=== PATIENT | female | born 1960 | race African-American/Black ===

== ENCOUNTER 2016-07-08 11:51 | Observation (INO) | payer OTHER ==
[2016-07-08] MEDS ORDERED: NITROGLYCERIN OINT 1 INCH/GM PACKET TOPICAL STA (12:22)
--- NOTE | 2016-07-08 12:25 | ED ---
General Adult HPI - General Chief complaint: Chest Pain Stated complaint: Chest pain Time Seen by Provider: 07/08/16 12:20 Source: patient, EMS, RN notes reviewed Mode of arrival: EMS Limitations: no limitations - History of Present Illness Initial comments: Patient is a pleasant 55-year-old female presenting to the emergency department complaining of chest discomfort. Onset of symptoms was a few days ago. Discomfort is steady. Discomfort is worse with exertion. Discomfort feels like pressure. No dyspnea. Patient does have cough and nasal congestion. Discomfort also increases with deep breath. No diaphoresis. No fevers. Patient does have a history of similar symptoms previously associated with pneumonia. Patient presents from [place] where she is there for drug rehab. - Related Data Home Medications Medication Instructions Recorded Confirmed QUEtiapine FUMARATE [SEROquel] 200 mg PO BID 07/08/16 07/08/16 Allergies Allergy/AdvReac Type Severity Reaction Status Date / Time NSAIDS (Non-Steroidal Allergy Unknown Verified 07/08/16 12:41 Anti-Inflamma propoxyphene [From Darvon] Allergy Unknown Verified 07/08/16 12:41 Review of Systems ROS Statement: Those systems with pertinent positive or pertinent negative responses have been documented in the HPI. ROS Other: All systems not noted in ROS Statement are negative. Constitutional: Denies: fever Eyes: Denies: eye pain ENT: Denies: ear pain Respiratory: Reports: cough Cardiovascular: Reports: chest pain Endocrine: Denies: fatigue Gastrointestinal: Denies: abdominal pain Genitourinary: Denies: dysuria Musculoskeletal: Denies: back pain Skin: Denies: rash Neurological: Denies: weakness Past Medical History Past Medical History: No Reported History History of Any Multi-Drug Resistant Organisms: MRSA Date of last positivie culture/infection: 2013 MDRO Source:: Arm Abscess Past Surgical History: Appendectomy, Cholecystectomy, Tonsillectomy Additional Past Surgical History / Comment(s): 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 Past Psychological History: Bipolar, Schizophrenia Smoking Status: Current every day smoker Past Alcohol Use History: None Reported Past Drug Use History: Heroin General Exam Limitations: no limitations General appearance: alert, in no apparent distress Head exam: Present: atraumatic Eye exam: Present: normal appearance, PERRL ENT exam: Present: normal oropharynx Neck exam: Present: normal inspection Respiratory exam: Present: normal lung sounds bilaterally Cardiovascular Exam: Present: regular rate, normal rhythm Expanded Peripheral pulses: 2+: Radial (R), Radial (L), Dorsalis Pedis (R), Dorsalis Pedis (L) GI/Abdominal exam: Present: soft. Absent: tenderness Extremities exam: Present: normal inspection. Absent: pedal edema, calf tenderness Neurological exam: Present: alert Psychiatric exam: Present: normal affect, normal mood Skin exam: Absent: rash Course Vital Signs 07/08/16 11:56 Temperature 98.4 F Pulse Rate 119 H Respiratory 16 Rate Blood Pressure 131/87 O2 Sat by Pulse 97 Oximetry EKG Findings - EKG Comments: EKG Findings:: Normal sinus rhythm and 98. Normal intervals. Normal axis. Voltage criteria for LVH. No acute ST elevation. Medical Decision Making - Medical Decision Making Patient resting comfortably in bed. Patient updated on results and plan. Patient also specifically updated on need for further evaluation regarding large thyroid. - Lab Data Result diagrams: 07/08/16 11:56 07/08/16 11:56 Lab Results 07/08/16 07/08/16 07/08/16 Range/Units 11:56 11:56 11:56 WBC 5.4 (3.8-10.6) k/uL RBC 5.27 (3.80-5.40) m/uL Hgb 14.1 (11.4-16.0) gm/dL Hct 42.9 (34.0-46.0) % MCV 81.5 (80.0-100.0) fL MCH 26.7 (25.0-35.0) pg MCHC 32.7 (31.0-37.0) g/dL RDW 15.6 H (11.5-15.5) % Plt Count 291 (150-450) k/uL Neutrophils % 56 % Lymphocytes % 32 % Monocytes % 7 % Eosinophils % 1 % Basophils % 1 % Neutrophils # 3.0 (1.3-7.7) k/uL Lymphocytes # 1.7 (1.0-4.8) k/uL Monocytes # 0.4 (0-1.0) k/uL Eosinophils # 0.1 (0-0.7) k/uL Basophils # 0.0 (0-0.2) k/uL PT (9.0-12.0) sec INR (<1.1) APTT (22.0-30.0) sec D-Dimer (<0.60) mg/L FEU Sodium 140 (137-145) mmol/L Potassium 5.2 H (3.5-5.1) mmol/L Chloride 102 (98-107) mmol/L Carbon Dioxide 23 (22-30) mmol/L Anion Gap 15 mmol/L BUN 14 (7-17) mg/dL Creatinine 0.60 (0.52-1.04) mg/dL Est GFR (MDRD) Af Amer >60 (>60 ml/min/1.73 sqM) Est GFR (MDRD) Non-Af >60 (>60 ml/min/1.73 sqM) Glucose 125 H (74-99) mg/dL Calcium 9.6 (8.4-10.2) mg/dL Magnesium 2.0 (1.6-2.3) mg/dL Total Bilirubin 0.9 (0.2-1.3) mg/dL AST 31 (14-36) U/L ALT 27 (9-52) U/L Alkaline Phosphatase 114 (38-126) U/L Total Creatine Kinase 65 (30-135) U/L CK-MB (CK-2) 0.4 (0.0-2.4) ng/mL CK-MB (CK-2) Rel Index 0.6 Troponin I <0.012 (0.000-0.034) ng/mL Total Protein 8.8 H (6.3-8.2) g/dL Albumin 4.4 (3.5-5.0) g/dL 07/08/16 Range/Units 11:56 WBC (3.8-10.6) k/uL RBC (3.80-5.40) m/uL Hgb (11.4-16.0) gm/dL Hct (34.0-46.0) % MCV (80.0-100.0) fL MCH (25.0-35.0) pg MCHC (31.0-37.0) g/dL RDW (11.5-15.5) % Plt Count (150-450) k/uL Neutrophils % % Lymphocytes % % Monocytes % % Eosinophils % % Basophils % % Neutrophils # (1.3-7.7) k/uL Lymphocytes # (1.0-4.8) k/uL Monocytes # (0-1.0) k/uL Eosinophils # (0-0.7) k/uL Basophils # (0-0.2) k/uL PT 10.2 (9.0-12.0) sec INR 1.0 (<1.1) APTT 25.5 (22.0-30.0) sec D-Dimer 0.63 H (<0.60) mg/L FEU Sodium (137-145) mmol/L Potassium (3.5-5.1) mmol/L Chloride (98-107) mmol/L Carbon Dioxide (22-30) mmol/L Anion Gap mmol/L BUN (7-17) mg/dL Creatinine (0.52-1.04) mg/dL Est GFR (MDRD) Af Amer (>60 ml/min/1.73 sqM) Est GFR (MDRD) Non-Af (>60 ml/min/1.73 sqM) Glucose (74-99) mg/dL Calcium (8.4-10.2) mg/dL Magnesium (1.6-2.3) mg/dL Total Bilirubin (0.2-1.3) mg/dL AST (14-36) U/L ALT (9-52) U/L Alkaline Phosphatase (38-126) U/L Total Creatine Kinase (30-135) U/L CK-MB (CK-2) (0.0-2.4) ng/mL CK-MB (CK-2) Rel Index Troponin I (0.000-0.034) ng/mL Total Protein (6.3-8.2) g/dL Albumin (3.5-5.0) g/dL - Radiology Data Radiology results: report reviewed (No pulmonary embolism on computed tomography scan of the chest. There is enlarged thyroid.) Disposition Clinical Impression: Chest pain Disposition: ADMITTED IP TO THIS HOSP
[2016-07-08 12:49] LABS: Basophils % (A) 1 %; CH 26.3; CHCM 32.4; Eosinophils # (A) 0.1 k/uL (0-0.7); Eosinophils % (A) 1 %; HCT 42.9 % (34.0-46.0); HDW 2.56; HGB 14.1 gm/dL (11.4-16.0); Luc # (Auto) 0.19; Luc % (Auto) 4; Lymphocytes # (A) 1.7 k/uL (1.0-4.8); Lymphocytes % (A) 32 %; MCH 26.7 pg (25.0-35.0); MCHC 32.7 g/dL (31.0-37.0); MCV 81.5 fL (80.0-100.0); Mean Platelet Volume 9.2; Monocytes # (A) 0.4 k/uL (0-1.0); Monocytes % (A) 7 %; Neutrophils % (A) 56 %; RBC 5.27 m/uL (3.80-5.40); RDW 15.6 % (11.5-15.5); WBC 5.4 k/uL (3.8-10.6); WBC (Perox) 5.18
[2016-07-08 13:04] LABS: Partial Thromboplastin Time 25.5 sec (22.0-30.0); Prothrombin Time 10.2 sec (9.0-12.0)
[2016-07-08 13:21] LABS: Creatine Kinase 65 U/L (30-135)
[2016-07-08] MEDS ORDERED: RX INFO: IV CONTRAST WAS GIVEN 1 EACH MISC MISCELLANE PRN (13:21)
[2016-07-08 13:28] LABS: ALT 27 U/L (9-52); AST 31 U/L (14-36); Alkaline Phosphatase 114 U/L (38-126); Anion Gap 15 mmol/L; Blood Urea Nitrogen 14 mg/dL (7-17); Calcium 9.6 mg/dL (8.4-10.2); Carbon Dioxide 23 mmol/L (22-30); Chloride 102 mmol/L (98-107); Glucose 125 mg/dL (74-99); Non-African American GFR(MDRD) >60 (>60 ml/min/1.73 sqM); Sodium 140 mmol/L (137-145); Total Bilirubin 0.9 mg/dL (0.2-1.3); Total Protein 8.8 g/dL (6.3-8.2)
[2016-07-08 13:30] LABS: Potassium 5.2 mmol/L (3.5-5.1)
--- NOTE | 2016-07-08 13:32 | XR ---
EXAMINATION TYPE: XR chest 2V DATE OF EXAM: 07/08/2016 1:22 PM COMPARISON: NONE HISTORY: Chest pain and shortness of breath TECHNIQUE: Frontal and lateral views of the chest are obtained. FINDINGS: Surgical clips are present in the upper abdomen. There are overlying cardiac leads. No air space disease, pneumothorax, or pleural effusion. Cardiac mediastinal silhouette, pulmonary vasculari ty and sourav are within normal limits. IMPRESSION: No acute cardiopulmonary process.
[2016-07-08 13:34] LABS: Creatine Kinase MB 0.4 ng/mL (0.0-2.4); Troponin I <0.012 ng/mL (0.000-0.034)
--- NOTE | 2016-07-08 14:37 | CT ---
EXAMINATION TYPE: CT angio chest DATE OF EXAM: 07/08/2016 2:17 PM COMPARISON: Chest x-ray same date HISTORY: Pt states of chest pain and SOB. CT DLP: 162.6 mGycm Automated exposure control for dose reduction was used. CONTRAST: CTA scan of the thorax is performed with IV Contrast, patient injected with 75 mL of Omnipaque 350, p ulmonary embolism protocol. MIP images are created and reviewed. 3D reconstructed images are create d on an independent workstation and reviewed. FINDINGS: LUNGS: The lungs are grossly clear, there is no concerning parenchymal mass or nodule identified. T here is no pleural effusion or pneumothorax seen. The tracheobronchial tree is patent. AORTA: No additional significant abnormality is seen. MEDIASTINUM: There is satisfactory enhancement of the pulmonary artery and its branches, there is no CT evidence for pulmonary embolism. There are no greater than 1 cm hilar or mediastinal lymph nodes. No pericardial effusion is seen. OTHER: The thyroid gland appears prominently and is somewhat asymmetric greater in size on the right than on the left. IMPRESSION: SUSPECT THYROID ENLARGEMENT CORRELATE. PULMONARY EMBOLISM IS NOT EVIDENT.
[2016-07-08] MEDS ORDERED: QUEtiapine 100 MG TAB PO STA (14:54)
[2016-07-08] MEDS ORDERED: NITROGLYCERIN SL TABS 0.4 MG TAB SUBLINGUAL PRN (14:55)
[2016-07-08] MEDS: NITROGLYCERIN OINT 1 INCH/GM PACKET TOPICAL SCH (17:31)
[2016-07-08] MEDS: HEPARIN SODIUM,PORCINE 5,000 UNIT/ML 1 ML VIAL SQ SCH ×2 (17:34→23:41)
[2016-07-08 20:06] LABS: Creatine Kinase 71 U/L (30-135)
[2016-07-08] MEDS ORDERED: CHLORPHENIRAMINE MALEATE 4 MG PO PRN (20:17)
[2016-07-08] MEDS ORDERED: ALBUTEROL NEBULIZED 2.5 MG/3 ML INHALATION PRN (20:17)
[2016-07-08] MEDS ORDERED: cloNIDine HCL 0.1 MG TAB PO PRN (20:17)
[2016-07-08] MEDS ORDERED: MAGNESIUM OXIDE 400 MG TAB PO PRN (20:17)
[2016-07-08] MEDS ORDERED: CALCIUM CARBONATE 500 MG CHEWABLE PO PRN (20:17)
[2016-07-08] MEDS ORDERED: busPIRone HCl 10 MG TAB PO PRN (20:17)
[2016-07-08] MEDS ORDERED: ONDANSETRON ODT 8 MG TAB.RAPDIS PO PRN (20:17)
[2016-07-08 20:20] LABS: Creatine Kinase MB 0.5 ng/mL (0.0-2.4); Troponin I <0.012 ng/mL (0.000-0.034)
[2016-07-08] MEDS ORDERED: diphenhydrAMINE 25 MG CAP PO PRN (20:44)
[2016-07-08] MEDS ORDERED: QUEtiapine 200 MG TAB PO SCH (21:00)
[2016-07-08] MEDS: TEMAZEPAM 15 MG CAP PO PRN ×2 (21:50→21:51)
[2016-07-08] MEDS: FAMOTIDINE 20 MG TAB PO SCH (21:52)
[2016-07-08] MEDS: LORazepam 2 MG/ML SYRINGE IV PRN (21:54)
[2016-07-08] MEDS: ONDANSETRON 4 MG/2 ML VIAL IM PRN (23:37)
[2016-07-09 00:34] LABS: Creatine Kinase 76 U/L (30-135)
[2016-07-09 00:47] LABS: Creatine Kinase MB 0.4 ng/mL (0.0-2.4); Troponin I <0.012 ng/mL (0.000-0.034)
[2016-07-09] MEDS: NITROGLYCERIN OINT 1 INCH/GM PACKET TOPICAL SCH ×3 (02:55→12:19)
[2016-07-09] MEDS: LORazepam 2 MG/ML SYRINGE IV PRN ×2 (03:00→09:19)
[2016-07-09] MEDS: ONDANSETRON 4 MG/2 ML VIAL IM PRN (06:10)
[2016-07-09 08:21] VITALS: PULSE 115; RESP 16; TEMP 98
[2016-07-09 08:31] VITALS: BP 179/91
[2016-07-09] MEDS: ACETAMINOPHEN TAB 325 MG TAB PO PRN ×2 (08:39→14:07)
--- NOTE | 2016-07-09 08:59 | P.CRDCN ---
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 The patient describes atypical chest discomfort. She was experiencing nausea and vomiting for the whole night. Currently she seems to be hypertensive and tachycardic and she seems to be in a withdrawal from alcohol or so. The EKG showed sinus rhythm without any significant ST or T-wave abnormalities. The cardiac enzymes were checked and came in to be unremarkable. The patient is not aware of any prior cardiac history and never seen any event security officer in the past. She is on Norvasc. I'm going to DC the Norvasc and start the patient on metoprolol for heart rate control. We'll obtain an echocardiogram was Doppler. We'll follow-up with the patient. 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 Past Psychological History: Bipolar, Schizophrenia Smoking Status: Current every day smoker Past Alcohol Use History: None Reported Past Drug Use History: Heroin Medications and Allergies Home Medications Medication Instructions Recorded Confirmed Type Acetaminophen Tab [Tylenol Tab] 650 mg PO Q4H PRN 07/08/16 07/08/16 History Albuterol Inhaler [Ventolin Hfa 2 puff INHALATION RT-Q4H PRN 07/08/16 07/08/16 History Inhaler] Calcium 1,000 mg PO TID PRN 07/08/16 07/08/16 History Chlorpheniramine Maleate 4 mg PO Q4H PRN MDD 4 tablets 07/08/16 07/08/16 History [Chlor-Trimeton] Citalopram Hydrobromide [CeleXA] 20 mg PO DAILY 07/08/16 07/08/16 History Magnesium Gluconate [Magonate] 500 mg PO TID PRN 07/08/16 07/08/16 History Multivitamins, Thera [Multivitamin 1 tab PO DAILY 07/08/16 07/08/16 History (formulary)] Ondansetron HCl [Zofran] 8 mg PO Q6H PRN 07/08/16 07/08/16 History Ondansetron [Zofran] 4 mg IM Q6H PRN 07/08/16 07/08/16 History Ranitidine HCl [Zantac] 150 mg PO BID 07/08/16 07/08/16 History Thiamine [Vitamin B-1] 100 mg PO DAILY 07/08/16 07/08/16 History amLODIPine [Norvasc] 10 mg PO DAILY 07/08/16 07/08/16 History busPIRone HCl [Buspar] 10 mg PO TID PRN 07/08/16 07/08/16 History cloNIDine HCL [Catapres] 0.1 mg PO Q4H PRN 07/08/16 07/08/16 History Allergies Allergy/AdvReac Type Severity Reaction Status Date / Time NSAIDS (Non-Steroidal Allergy Unknown Verified 07/08/16 12:41 Anti-Inflamma propoxyphene [From Darvon] Allergy Unknown Verified 07/08/16 12:41 Physical Exam Vitals: Vital Signs Temp Pulse Pulse Resp BP BP Pulse Ox 07/09/16 08:30 179/91 07/09/16 08:00 98 F 115 H 16 87/52 97 07/09/16 04:00 98.1 F 111 H 18 162/93 97 07/09/16 00:00 112 H 18 07/08/16 22:56 105 H 18 163/85 96 07/08/16 20:00 99 18 07/08/16 19:40 98 F 120 H 18 105/63 96 07/08/16 16:00 98.7 F 87 16 123/70 100 07/08/16 15:10 98.5 F 80 20 142/83 100 Intake and Output 07/08/16 07/09/16 07/09/16 22:59 06:59 14:59 Intake Total 500 Balance 500 Intake: Amount of Fluid Infused ( 500 ml) Other: # Voids 1 Weight 74.1 kg - Constitutional General appearance: mild distress - Respiratory Respiratory: bilateral: CTA - Cardiovascular Rhythm: regular Results 07/08/16 11:56 07/08/16 11:56 Cardiac Enzymes 07/08/16 07/08/16 Range/Units 19:08 23:43 CK-MB (CK-2) 0.5 0.4 (0.0-2.4) ng/mL Troponin I <0.012 <0.012 (0.000-0.034) ng/mL Current Medications Generic Name Dose Route Start Last Admin Trade Name Freq PRN Reason Stop Dose Admin Acetaminophen 650 mg 07/08/16 20:17 07/09/16 08:39 Tylenol Tab PO 650 mg Q4H PRN Administration Pain Albuterol Sulfate 2.5 mg 07/08/16 20:17 Ventolin Nebulized INHALATION RT-Q4H PRN Shortness Of Breath Amlodipine Besylate 10 mg 07/09/16 09:00 Norvasc PO DAILY [facility] Aspirin 325 mg 07/09/16 09:00 Aspirin PO DAILY [facility] Buspirone HCl 10 mg 07/08/16 20:17 Buspar PO TID PRN Anxiety Calcium Carbonate/Glycine 1,000 mg 07/08/16 20:17 Tums PO TID PRN muscle cramps Citalopram Hydrobromide 20 mg 07/09/16 09:00 Celexa PO DAILY [facility] Clonidine 0.1 mg 07/08/16 20:17 Catapres PO Q4H PRN withdrawal sx Diphenhydramine HCl 25 mg 07/08/16 20:44 Benadryl PO Q4H PRN withdrawal sx Famotidine 20 mg 07/08/16 21:00 07/08/16 21:52 Pepcid PO Not Given BID [facility] Heparin Sodium (Porcine) 5,000 unit 07/08/16 16:00 07/08/16 23:41 Heparin SQ 5,000 unit Q8HR [facility] Administration Lorazepam 0.5 mg 07/08/16 20:18 07/09/16 03:00 Ativan IV 0.5 mg Q6HR PRN Administration Anxiety Magnesium Oxide 400 mg 07/08/16 20:17 Mag-Ox PO TID PRN muscle cramps Miscellaneous Information 1 each 07/08/16 13:21 Rx Info: Iv Contrast Was Given MISCELLANE 07/10/16 13:21 DAILY PRN Per Protocol Multivitamins 1 each 07/09/16 09:00 Theragran PO DAILY [facility] Nitroglycerin 1 inch 07/08/16 18:00 07/09/16 06:11 Nitro-Bid Oint TOPICAL Not Given Q6HR [facility] Nitroglycerin 0.4 mg 07/08/16 14:55 Nitrostat SUBLINGUAL Q5M PRN Chest Pain Ondansetron HCl 8 mg 07/08/16 20:17 Zofran Odt PO Q6H PRN Nausea And Vomiting Ondansetron HCl 4 mg 07/08/16 20:17 07/09/16 06:10 Zofran IM 4 mg Q6H PRN Administration Nausea And Vomiting Sodium Chloride 10 ml 07/08/16 21:00 07/08/16 23:45 Saline Flush IV Not Given BID BRENDA Temazepam 15 mg 07/08/16 20:18 07/08/16 21:51 Restoril PO 15 mg HS PRN Administration Insomnia Thiamine HCl 100 mg 07/09/16 09:00 Vitamin B-1 PO DAILY BRENDA Intake and Output 07/08/16 07/09/16 07/09/16 22:59 06:59 14:59 Intake Total 500 Balance 500 Intake: Amount of Fluid Infused ( 500 ml) Other: # Voids 1 Weight 74.1 kg Assessment and Plan Plan: assessment #1 atypical chest discomfort #2 sinus tachycardia #3 history of drug abuse Plan #1 DC Norvasc #2 start metoprolol #3 obtain an echocardiogram was Doppler next #4 follow-up with the patient
[2016-07-09] MEDS ORDERED: THIAMINE 100 MG TAB PO SCH (09:00)
[2016-07-09] MEDS ORDERED: CITALOPRAM HYDROBROMIDE 20 MG TAB PO SCH (09:00)
[2016-07-09] MEDS ORDERED: MULTIVITAMINS, THERA 1 EACH TAB PO SCH (09:00)
[2016-07-09] MEDS ORDERED: amLODIPine 10 MG TAB PO SCH (09:00)
[2016-07-09] MEDS ORDERED: ASPIRIN 325 MG TAB PO SCH (09:00)
[2016-07-09] MEDS ORDERED: METOPROLOL TARTRATE 25 MG TAB PO SCH (09:15)
[2016-07-09] MEDS: HEPARIN SODIUM,PORCINE 5,000 UNIT/ML 1 ML VIAL SQ SCH (09:56)
[2016-07-09] MEDS: FAMOTIDINE 20 MG TAB PO SCH (10:15)
[2016-07-09 12:22] LABS: Basophils % (A) 1 %; CH 25.8; CHCM 31.4; Eosinophils % (A) 0 %; HCT 45.7 % (34.0-46.0); HDW 2.41; HGB 14.3 gm/dL (11.4-16.0); Hypochromasia Slight; Luc # (Auto) 0.14; Luc % (Auto) 3; Lymphocytes # (A) 1.4 k/uL (1.0-4.8); Lymphocytes % (A) 35 %; MCH 25.8 pg (25.0-35.0); MCHC 31.3 g/dL (31.0-37.0); MCV 82.3 fL (80.0-100.0); Mean Platelet Volume 7.8; Monocytes # (A) 0.2 k/uL (0-1.0); Monocytes % (A) 4 %; Neutrophils # (A) 2.4 k/uL (1.3-7.7); Neutrophils % (A) 57 %; RBC 5.55 m/uL (3.80-5.40); RDW 15.1 % (11.5-15.5); WBC 4.2 k/uL (3.8-10.6); WBC (Perox) 4.35
[2016-07-09 12:27] LABS: Anion Gap 14 mmol/L; Blood Urea Nitrogen 14 mg/dL (7-17); Calcium 10.3 mg/dL (8.4-10.2); Carbon Dioxide 23 mmol/L (22-30); Chloride 103 mmol/L (98-107); Cholesterol 214 mg/dL (<200); Glucose 133 mg/dL (74-99); HDL Cholesterol 66 mg/dL (40-60); Non-African American GFR(MDRD) >60 (>60 ml/min/1.73 sqM); Potassium 4.6 mmol/L (3.5-5.1); Sodium 140 mmol/L (137-145); Triglycerides 196 mg/dL (<150)
--- NOTE | 2016-07-09 15:08 | HP ---
CHIEF COMPLAINT: Chest pain. HISTORY OF PRESENT ILLNESS: This 55-year-old woman with a past medical history of hypertension, history of MRSA, history of appendectomy, history of arm abscess, history of bipolar schizophrenia being followed by the primary physician in [facility] was recently in rehab in [place] for heroin dependence and the patient was admitted with chest discomfort to [facility]. The patient had complained of cough and sputum for the last 3 to 4 days. The pain is mostly left-sided and mid part. It is worse in extension, according to her, feels like a pressure there is no history of any palpitation. No history of any diaphoresis. No history of any radiation of pain as well. The patient came to [facility], admitted for further evaluation and treatment. Initial labs showed normal CBC. Potassium was 5.2, glucose 125. Total protein was 8.8. The patient also had a chest x-ray and showed no acute process. EKG showed sinus rhythm. A chest CT was also done, which showed suspected thyroid enlargement. Otherwise, no pulmonary embolism. PAST MEDICAL HISTORY: History of hypertension, history of MRSA, history cholecystectomy, history of appendectomy, bipolar schizophrenia. Medications prior to admission include: 2. BuSpar 10 mg p.o. daily. 3. Norvasc 10 mg daily. 5. Zantac 150 mg p.o. b.i.d. 6. Zofran 8 mg every 6 hours p.r.n. 7. Multivitamin 1 p.o. daily. 9. Celexa 20 mg daily. 10. Chlor-Trimeton 4 mg p.o. every 4 p.r.n. 11. Calcium 1000 mg p.o. daily. 12. Ventolin HFA 2 puffs q.4 p.r.n. 13. Tylenol 650 q.4 p.r.n. ALLERGIES: NSAIDS AND DARVON. FAMILY HISTORY: No history of heart disease or strokes in the family. SOCIAL HISTORY: History of smoking. History of IV heroin abuse. REVIEW OF SYSTEMS: ENT: No diminishing hearing. No diminished vision. CARDIOVASCULAR: As mentioned earlier. RESPIRATORY: As mentioned earlier. GI: No nausea. : No dysuria. NERVOUS: No numbness or weakness. ALLERGY/IMMUNOLOGY: No asthma or hay fever. MUSCULOSKELETAL: As mentioned earlier. HEMATOLOGY/ONCOLOGY: No history of anemia. ENDODRINE: No history of diabetes, hypothyroidism. CONSTITUTIONAL: As mentioned earlier. DERMATOLOGY: Negative. RHEUMATOLOGY: Negative. PSYCHIATRY: As mentioned earlier. PHYSICAL EXAM: Alert and oriented x3. Pulse 120, blood pressure 105/66, respirations 18, temperature 98 degrees, pulse ox 96% on room air. HEENT: Conjunctivae normal. Oral mucosa moist. NECK: No jugular venous distension. No carotid bruits. No lymph node enlargement. CARDIOVASCULAR: S1 and S2 muffled. No S3. No S4. RESPIRATORY: Breath sounds diminished at the bases. A few rhonchi. No crackles. ABDOMEN: Soft, nontender. No mass palpable. LEGS: No edema. No swelling. NERVOUS SYSTEM: Higher functions as mentioned. Moves all 4 limbs. No focal deficits. LYMPHATIC: No lymph nodes palpable in neck, axillae or groins. SKIN: No ulcer, rash or bleeding. Labs are CBC within normal limits. Potassium 5.8. D-dimer is 0.63. Glucose 125. 8.8. ASSESSMENT: 1. Chest pain, possible unstable angina. Rule out musculoskeletal chest pain. 2. Cough and upper respiratory infection, rule out influenza. 3. Increased D-dimer with no evidence of pulmonary embolus. 4. Mild hyperkalemia. 5. Increased random blood sugar. 6. History of nicotine dependence. 7. History of hypertension. 8. History of methicillin-resistant Staphylococcus aureus. 9. History of left arm abscess. 10. History of cholecystectomy. 11. History of bipolar schizophrenia. 12. FULL CODE. RECOMMENDATIONS AND DISCUSSION: In this 55-year-old woman who presented with multiple complex medical issues, we will monitor the patient closely. Continue the current medications, resume the home medications. Resume angina protocol and acute coronary syndrome protocol, rule out myocardial infarction. Closely follow with Cardiology. Guarded prognosis. Further recommendations to follow. MTDD
--- NOTE | 2016-07-10 23:00 | DS ---
DATE OF ADMISSION: 07/08/2016 DATE OF DISCHARGE: 07/09/2016 FINAL DIAGNOSES: 1. Chest pain, possibly musculoskeletal, myocardial infarction ruled out. 2. Cough and upper respiratory infection. Influenza ruled out. 3. Increased d-dimer, with no evidence of pulmonary embolism. 4. Mild hyperkalemia. 5. Increased random blood sugar. 6. History of nicotine dependence. 7. History of hypertension. 8. History of methicillin-resistant Staphylococcus aureus. 9. History of left arm abscess. 10. History of cholecystectomy. 11. History of bipolar schizophrenia. 12. History of IV heroin abuse. 13. Hyperlipidemia. DISCHARGE DISPOSITION: The patient will be discharged in a stable condition with guarded prognosis. Discharge cleared by cardiology. HISTORY OF PRESENT ILLNESS: This 55 -year-old woman with a past medical history of multiple medical problems from [facility] was in [facility] for IV heroin abuse. The patient came in with chest pain, multiple symptoms, treated symptomatically. Myocardial infarction ruled out. Evaluation by chest CT was negative. On exam, vitals are stable. CARDIOVASCULAR: S1, S2 muffled. ABDOMEN: Soft. Nervous system: noted. RESPIRATORY: Clear to auscultation. ABDOMEN: Soft. CENTRAL NERVOUS SYSTEM: No focal deficits. DISCHARGE ADVICE AND MEDICATIONS: 1. Diet is cardiac. 2. Activity limited until follow up. 3. Follow-up with the technical asst as recommended. 4. Follow-up with primary care physician in 2 to 3 days. 5. Calcium p.r.n. for muscle cramps. 6. Tylenol 650 q.4 p.r.n. 7. Albuterol HFA 2 puffs q.i.d. p.r.n. 8. Lipitor 10 mg q.h.s. 9. chlor pheneranibe 4 mg q.4 p.r.n. 10. Celexa 20 mg p.o. daily. 11. Magnesium Gluconate 500 mg p.o. t.i.d. 12. Lopressor 25 mg p.o. b.i.d. 13. Multivitamin 1 p.o. daily. 14. Zofran 4 mg p.r.n. 8 mg p.r.n. 15. Zantac 150 mg p.o. b.i.d. 16. Vitamin thiamine 100 mg p.o. daily. 17. Buspar 10 mg t.i.d. p.r.n. for anxiety. 18. Catapres 0.1 p.o. q4h for withdrawal symptoms. Once again, the patient will be discharged in a stable condition with guarded prognosis. MTDD
== END 2016-07-09 16:00 | disposition home or self-care (01) ==
LOC: EC 11:51 → 3OBS 14:55
PROVIDERS: ADMIT Internal Medicine; ATTEND Internal Medicine
DX: R07.89 Other chest pain (principal); J06.9 Acute upper respiratory infection, unspecified; E78.5 Hyperlipidemia, unspecified; E87.5 Hyperkalemia; I10 Essential (primary) hypertension; F31.9 Bipolar disorder, unspecified; F20.9 Schizophrenia, unspecified; R00.0 Tachycardia, unspecified; F17.200 Nicotine dependence, unspecified, uncomplicated; Z79.899 Other long term (current) drug therapy; Z88.8 Allergy status to other drugs, medicaments and biological substances
CPT/HCPCS: 36415; 93005; 85379; 80061; 80053; 80048; 82550; 82553; 83735; 84484; 85025 ×2; 85610; 85730; 87502; 71020; 71275; 99285; G0378 ×2; J2060 ×2; J1644; Q9967; J2405 ×2; 96372; 96376

== ENCOUNTER 2021-11-17 17:12 | Observation (INO) | payer OTHER ==
[2021-11-17] MEDS ORDERED: SODIUM CHLORIDE 0.9% 1,000 ML IV STA (17:44)
--- NOTE | 2021-11-17 17:49 | ED ---
Overdose HPI - General Chief Complaint: Overdose Stated Complaint: Overdose Time Seen by Provider: 11/17/21 17:15 Source: patient, EMS, RN notes reviewed Mode of arrival: EMS Limitations: altered mental status - History of Present Illness Initial Comments: 61-year-old female who presented to [facility] for treatment today when she was found be very lethargic. She took an unknown amount of gabapentin reportedly as well as possibly Ativan and methadone also fentanyl is reported. This unclear when she may have taken the medication she was transported here by EMS. Upon arrival she was noted to be arousable to pain and to verbal stimulation no evidence of any respiratory distress vital signs are stable. Unclear whether this was intentional or accidental. MD Complaint: other - Related Data Home Medications Medication Instructions Recorded Confirmed Acetaminophen Tab [Tylenol] 650 mg PO Q4H PRN 07/08/16 07/08/16 Albuterol Inhaler [Ventolin Hfa 2 puff INHALATION RT-Q4H PRN 07/08/16 07/08/16 Inhaler] Calcium 1,000 mg PO TID PRN 07/08/16 07/08/16 Chlorpheniramine Maleate 4 mg PO Q4H PRN MDD 4 tablets 07/08/16 07/08/16 [Chlor-Trimeton] Citalopram Hydrobromide [CeleXA] 20 mg PO DAILY 07/08/16 07/08/16 Magnesium Gluconate [Magonate] 500 mg PO TID PRN 07/08/16 07/08/16 Multivitamins, Thera [Multivitamin 1 tab PO DAILY 07/08/16 07/08/16 (formulary)] Ondansetron [Zofran] 4 mg IM Q6H PRN 07/08/16 07/08/16 Ranitidine HCl [Zantac] 150 mg PO BID 07/08/16 07/08/16 Thiamine [Vitamin B-1] 100 mg PO DAILY 07/08/16 07/08/16 busPIRone HCl [Buspar] 10 mg PO TID PRN 07/08/16 07/08/16 cloNIDine HCL [Catapres] 0.1 mg PO Q4H PRN 07/08/16 07/08/16 ondansetron HCL [Zofran] 8 mg PO Q6H PRN 07/08/16 07/08/16 Previous Rx's Medication Instructions Recorded Atorvastatin Calcium [Lipitor] 10 mg PO HS #30 tab 07/09/16 Metoprolol Tartrate [Lopressor] 25 mg PO BID #60 tab 07/09/16 Allergies Allergy/AdvReac Type Severity Reaction Status Date / Time NSAIDS (Non-Steroidal Allergy Unknown Verified 11/17/21 17:29 Anti-Inflamma propoxyphene [From Darvon] Allergy Unknown Verified 11/17/21 17:29 Review of Systems ROS Statement: Those systems with pertinent positive or pertinent negative responses have been documented in the HPI. ROS Other: All systems not noted in ROS Statement are negative. 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 Absent: scleral icterus, conjunctival injection, periorbital swelling ENT exam: Present: mucous membranes dry Neck exam: Present: normal inspection. Absent: tenderness, meningismus, lymphadenopathy Respiratory exam: Present: normal lung sounds bilaterally. Absent: respiratory distress, wheezes, rales, rhonchi, stridor Cardiovascular Exam: Present: regular rate, bradycardia GI/Abdominal exam: Present: soft, normal bowel sounds. 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 Absent: tenderness, pedal edema, joint swelling, calf tenderness Back exam: Present: normal inspection Neurological exam: Present: alert, altered, CN II-XII intact. Absent: motor sensory deficit Psychiatric exam: Present: flat affect Skin exam: Present: warm, dry, intact, normal color, other (As above). Absent: rash Course Vital Signs 11/17/21 11/17/21 11/17/21 17:26 18:09 18:56 Temperature 97.4 F L Pulse Rate 54 L 54 L Pulse Rate [ 54 L Truss Driver Helper ] Respiratory 15 16 Rate Blood Pressure 121/64 128/76 O2 Sat by Pulse 93 L 100 Oximetry 11/17/21 11/17/21 11/17/21 19:39 20:09 21:22 Temperature Pulse Rate 52 L 55 L 52 L Pulse Rate [ Truss Driver Helper ] Respiratory 16 16 16 Rate Blood Pressure 112/65 113/66 136/73 O2 Sat by Pulse 100 100 100 Oximetry Medical Decision Making - Medical Decision Making Patient was arousable to verbal and physical stimulus. Poison control was consulted and did recommend monitoring for 6-8 hours. I did discuss case with Dr. Noble patient will be admitted for inpatient monitoring. It is unknown when the medications were taken the patient has maintained stable vital signs throughout her stay. UA and drug screen is pending. - Lab Data Result diagrams: 11/17/21 17:51 11/17/21 17:51 Lab Results 11/17/21 11/17/21 11/17/21 Range/Units 17:51 17:51 17:51 WBC 5.9 (3.8-10.6) k/uL RBC 4.01 (3.80-5.40) m/uL Hgb 10.0 L (11.4-16.0) gm/dL Hct 31.8 L (34.0-46.0) % MCV 79.3 L (80.0-100.0) fL MCH 25.0 (25.0-35.0) pg MCHC 31.5 (31.0-37.0) g/dL RDW 15.3 (11.5-15.5) % Plt Count 259 (150-450) k/uL MPV 8.2 Neutrophils % 48 % Lymphocytes % 36 % Monocytes % 10 % Eosinophils % 3 % Basophils % 0 % Neutrophils # 2.8 (1.3-7.7) k/uL Lymphocytes # 2.1 (1.0-4.8) k/uL Monocytes # 0.6 (0-1.0) k/uL Eosinophils # 0.2 (0-0.7) k/uL Basophils # 0.0 (0-0.2) k/uL Hypochromasia Slight Sodium 139 (137-145) mmol/L Potassium 4.0 (3.5-5.1) mmol/L Chloride 104 (98-107) mmol/L Carbon Dioxide 28 (22-30) mmol/L Anion Gap 7 mmol/L BUN 11 (7-17) mg/dL Creatinine 0.57 (0.52-1.04) mg/dL Est GFR (CKD-EPI)AfAm >90 (>60 ml/min/1.73 sqM) Est GFR (CKD-EPI)NonAf >90 (>60 ml/min/1.73 sqM) Glucose 148 H (74-99) mg/dL Plasma Lactic Acid Nigel 1.4 (0.7-2.0) mmol/L Calcium 8.2 L (8.4-10.2) mg/dL Magnesium 2.1 (1.6-2.3) mg/dL Total Bilirubin 0.1 L (0.2-1.3) mg/dL AST 20 (14-36) U/L ALT 11 (4-34) U/L Alkaline Phosphatase 102 (38-126) U/L Ammonia <9 (<30) umol/L Troponin I (0.000-0.034) ng/mL Total Protein 6.7 (6.3-8.2) g/dL Albumin 3.3 L (3.5-5.0) g/dL Lipase 49 (23-300) U/L Salicylates <1.0 mg/dL Acetaminophen <10.0 ug/mL Serum Alcohol <10 mg/dL 11/17/21 Range/Units 17:51 WBC (3.8-10.6) k/uL RBC (3.80-5.40) m/uL Hgb (11.4-16.0) gm/dL Hct (34.0-46.0) % MCV (80.0-100.0) fL MCH (25.0-35.0) pg MCHC (31.0-37.0) g/dL RDW (11.5-15.5) % Plt Count (150-450) k/uL MPV Neutrophils % % Lymphocytes % % Monocytes % % Eosinophils % % Basophils % % Neutrophils # (1.3-7.7) k/uL Lymphocytes # (1.0-4.8) k/uL Monocytes # (0-1.0) k/uL Eosinophils # (0-0.7) k/uL Basophils # (0-0.2) k/uL Hypochromasia Sodium (137-145) mmol/L Potassium (3.5-5.1) mmol/L Chloride (98-107) mmol/L Carbon Dioxide (22-30) mmol/L Anion Gap mmol/L BUN (7-17) mg/dL Creatinine (0.52-1.04) mg/dL Est GFR (CKD-EPI)AfAm (>60 ml/min/1.73 sqM) Est GFR (CKD-EPI)NonAf (>60 ml/min/1.73 sqM) Glucose (74-99) mg/dL Plasma Lactic Acid Nigel (0.7-2.0) mmol/L Calcium (8.4-10.2) mg/dL Magnesium (1.6-2.3) mg/dL Total Bilirubin (0.2-1.3) mg/dL AST (14-36) U/L ALT (4-34) U/L Alkaline Phosphatase (38-126) U/L Ammonia (<30) umol/L Troponin I <0.012 (0.000-0.034) ng/mL Total Protein (6.3-8.2) g/dL Albumin (3.5-5.0) g/dL Lipase (23-300) U/L Salicylates mg/dL Acetaminophen ug/mL Serum Alcohol mg/dL - EKG Data -: EKG Interpreted by Me EKG shows normal: sinus rhythm EKG Comments: Sinus rhythm a 61. NE interval 173 QRS duration 87 QT/QTC 444/[address]-T wave changes - Radiology Data Radiology results: report reviewed, image reviewed (Reviewed as well as report no acute findings) Disposition Clinical Impression: Drug overdose Disposition: ADMITTED IP TO THIS [facility] Condition: Stable Referrals: None,Stated [Primary Care Provider] - 1-2 days Decision Date: 11/17/21 Decision Time: 21:00
[2021-11-17 18:00] LABS: Basophils % (A) 0 %; Eosinophils # (A) 0.2 k/uL (0-0.7); Eosinophils % (A) 3 %; HCT 31.8 % (34.0-46.0); Hypochromasia Slight; Lymphocytes # (A) 2.1 k/uL (1.0-4.8); Lymphocytes % (A) 36 %; MCHC 31.5 g/dL (31.0-37.0); MCV 79.3 fL (80.0-100.0); Mean Platelet Volume 8.2; Monocytes # (A) 0.6 k/uL (0-1.0); Monocytes % (A) 10 %; Neutrophils # (A) 2.8 k/uL (1.3-7.7); Neutrophils % (A) 48 %; Platelet Count 259 k/uL (150-450); RBC 4.01 m/uL (3.80-5.40); RDW 15.3 % (11.5-15.5); WBC 5.9 k/uL (3.8-10.6)
[2021-11-17 18:13] LABS: ALT 11 U/L (4-34); AST 20 U/L (14-36); Acetaminophen <10.0 ug/mL; African American GFR (CKD) >90 (>60 ml/min/1.73 sqM); Albumin 3.3 g/dL (3.5-5.0); Alcohol <10 mg/dL; Alkaline Phosphatase 102 U/L (38-126); Anion Gap 7 mmol/L; Blood Urea Nitrogen 11 mg/dL (7-17); Calcium 8.2 mg/dL (8.4-10.2); Carbon Dioxide 28 mmol/L (22-30); Chloride 104 mmol/L (98-107); Glucose 148 mg/dL (74-99); Lipase 49 U/L (23-300); Magnesium 2.1 mg/dL (1.6-2.3); Non-African American GFR(CKD) >90 (>60 ml/min/1.73 sqM); Salicylate <1.0 mg/dL; Sodium 139 mmol/L (137-145); Total Bilirubin 0.1 mg/dL (0.2-1.3); Total Protein 6.7 g/dL (6.3-8.2)
[2021-11-17 18:29] LABS: Lactic Acid, Venous 1.4 mmol/L (0.7-2.0)
--- NOTE | 2021-11-17 19:04 | XR ---
EXAMINATION: XR chest 1V portable DATE AND TIME: 11/17/2021 6:07 PM CLINICAL INDICATION: Overdose TECHNIQUE: AP upright portable COMPARISON: 07/08/2016 FINDINGS: There is evidence of small bibasilar infiltrates, greater on the left. Remainder of the lungs appear well-expanded and clear. The pleural spaces are negative. The cardiac silhouette is not enlarged. The remainder of the mediastinal silhouette is unremarkable. The skeletal structures and soft tissues are negative for acute findings. IMPRESSION: Mild bibasilar infiltrates, greater on the left.
[2021-11-17] MEDS ORDERED: NALOXONE 0.4 MG/ML 1 ML VIAL IV PRN (21:30)
[2021-11-17] MEDS ORDERED: ALBUTEROL NEBULIZED 2.5 MG/3 ML INHALATION PRN (21:31)
[2021-11-17] MEDS: SODIUM CHLORIDE 0.9% 1,000 ML IV SCH (22:00)
[2021-11-18 01:43] LABS: Appearance,Urine Clear (Clear); Bilirubin,Urine Negative (Negative); Blood,Urine Negative (Negative); Color,Urine Yellow; Glucose,Urine (UA) Negative (Negative); Ketones,Urine Negative (Negative); Leukocyte Esterase,Urine Negative (Negative); Nitrite,Urine Negative (Negative); Protein,Urine Negative (Negative); Specific Gravity,Urine 1.025 (1.001-1.035)
[2021-11-18 01:56] LABS: Amphetamine Screen,Urine Not Detected (NotDetected); Barbiturate Screen,Urine Not Detected (NotDetected); Benzodiazepines Screen,Urine Detected (NotDetected); Cocaine Screen,Urine Detected (NotDetected); Methadone Screen, Urine Detected (NotDetected); Opiate Screen,Urine Detected (NotDetected); Oxycodone Screen, Urine Not Detected (NotDetected); Phencyclidine Screen,Urine Not Detected (NotDetected); Tricyclic Antidepressant,Urine Not Detected (NotDetected); Urn Cannabinoid Scrn Not Detected (NotDetected)
[2021-11-18 05:01] VITALS: RESP 18
--- NOTE | 2021-11-18 06:14 | P.HPIM ---
History of Present Illness H&P Date: 11/17/21 Chief Complaint: overdose 61-year-old female with polysubstance abuse she is still under the influence and provides unreliable history she is arousable , but gives inconsistent answers and would drift back to sleep again. she admits to using multiple drugs, trying to get high, denies any suicidal ideation. admits to using cocaine, heroin and benzo. patient friend dropped her off at [facility], but due to her mentation and report of possible overdosing on gabapentine , opioids, and other unknown possible meds, she was sent to our facility for evaluation blood work overall unremarkable , urine drug screen positive for opioids, methadone, benzo and cocaine. UA unremarkable. patient reports back pain , which is chronic and asking for pain meds, otherwise , no meaningful history is obtainable . 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 - Past Family History Father Family Medical History: Unable to Obtain Mother Family Medical History: Unable to Obtain Medications and Allergies Home Medications Medication Instructions Recorded Confirmed Type Acetaminophen Tab [Tylenol] 650 mg PO Q4H PRN 07/08/16 07/08/16 History Albuterol Inhaler [Ventolin Hfa 2 puff INHALATION RT-Q4H PRN 07/08/16 07/08/16 History Inhaler] Calcium 1,000 mg PO TID PRN 07/08/16 07/08/16 History Chlorpheniramine Maleate 4 mg PO Q4H PRN MDD 4 tablets 07/08/16 07/08/16 History [Chlor-Trimeton] Citalopram Hydrobromide [CeleXA] 20 mg PO DAILY 07/08/16 07/08/16 History Magnesium Gluconate [Magonate] 500 mg PO TID PRN 07/08/16 07/08/16 History Multivitamins, Thera [Multivitamin 1 tab PO DAILY 07/08/16 07/08/16 History (formulary)] Ondansetron [Zofran] 4 mg IM Q6H PRN 07/08/16 07/08/16 History Ranitidine HCl [Zantac] 150 mg PO BID 07/08/16 07/08/16 History Thiamine [Vitamin B-1] 100 mg PO DAILY 07/08/16 07/08/16 History busPIRone HCl [Buspar] 10 mg PO TID PRN 07/08/16 07/08/16 History cloNIDine HCL [Catapres] 0.1 mg PO Q4H PRN 07/08/16 07/08/16 History ondansetron HCL [Zofran] 8 mg PO Q6H PRN 07/08/16 07/08/16 History Atorvastatin Calcium [Lipitor] 10 mg PO HS #30 tab 07/09/16 Rx Metoprolol Tartrate [Lopressor] 25 mg PO BID #60 tab 07/09/16 Rx Allergies Allergy/AdvReac Type Severity Reaction Status Date / Time NSAIDS (Non-Steroidal Allergy Unknown Verified 11/17/21 17:29 Anti-Inflamma propoxyphene [From Darvon] Allergy Unknown Verified 11/17/21 17:29 Physical Exam Vitals: Vital Signs Temp Pulse Pulse Resp BP BP Pulse Ox 11/17/21 22:58 16 11/17/21 22:45 97.8 F 60 16 146/74 96 11/17/21 21:22 52 L 16 136/73 100 11/17/21 20:09 55 L 16 113/66 100 11/17/21 19:39 52 L 16 112/65 100 11/17/21 18:56 54 L 11/17/21 18:09 54 L 16 128/76 100 11/17/21 17:26 97.4 F L 54 L 15 121/64 93 L Intake and Output 11/17/21 11/17/21 11/18/21 14:59 22:59 06:59 Other: Voiding Method Toilet Weight 90.718 kg Constitutional: No acute distress, somnolent easily arousable with verbal stimulation but drifts back to sleep quickly Eyes: Anicteric sclerae, moist conjunctiva, Pupils equal round reactive to light ENMT: NC/AT Oropharynx clear, no erythema, or exudates Neck: Supple, no masses, or JVD No carotid bruits No thyromegaly Lungs: Clear to auscultation Clear to percussion Normal respiratory effort, no accessory muscle use Cardiovascular: Heart regular in rate and rhythm, No murmurs, gallops, or rubs No peripheral edema Abdominal: Soft Nontender, no guarding, rebound or rigidity Abdomen moving with respiration Normoactive bowel sounds No hepatomegaly, No splenomegaly No palpable mass No abdominal wall hernia noted Skin: Thickening of skin of bilateral arms, otherwise Normal temperature, tone, texture, turgor Extremities: No digital cyanosis No clubbing Pedal pulses intact and symmetrical Radial pulses intact and symmetrical No calf tenderness Psychiatric: Somnolent easily arousable with verbal stimulation drifts back to sleep oriented to self only, she knows she is at a hospital but not sure which one Neuro unable to perform proper neuro exam however she is moving all 4 extremities and follows simple commands briefly Lymphatics: no palpable cervical or supraclavicular , or inguinal lymph nodes Results CBC & Chem 7: 11/17/21 17:51 11/17/21 17:51 Labs: Abnormal Lab Results - Last 24 Hours (Table) 11/17/21 11/17/21 11/17/21 Range/Units 17:51 17:51 17:51 Hgb 10.0 L (11.4-16.0) gm/dL Hct 31.8 L (34.0-46.0) % MCV 79.3 L (80.0-100.0) fL Glucose 148 H (74-99) mg/dL Calcium 8.2 L (8.4-10.2) mg/dL Total Bilirubin 0.1 L (0.2-1.3) mg/dL Albumin 3.3 L (3.5-5.0) g/dL Urine Opiates Screen Detected H (NotDetected) Urine Methadone Screen Detected H (NotDetected) U Benzodiazepines Scrn Detected H (NotDetected) Urine Cocaine Screen Detected H (NotDetected) Thrombosis Risk Factor Assmnt - Choose All That Apply Each Factor Represents 1 point: Age 41-60 years Thrombosis Risk Factor Assessment Total Risk Factor Score: 1 Thrombosis Risk Factor Assessment Level: Low Risk Assessment and Plan Assessment: Polysubstance abuse Overdose on multiple drugs not clear exactly possible gabapentin, opiates, methadone, benzos Salicylate, acetaminophen, and alcohol level all low within normal limits Urine drug screen was positive for benzo cocaine and opiates and methadone Continue with neuro checks Poison control was contacted recommended monitoring Cardiac monitoring IV fluid hydration normal saline Fall precautions Hold home medications until verified Psych eval Unclear past medical history at this point Blood work overall unremarkable Continue supportive care Full code DVT prophylaxis heparin subcu 3 times a day 61-year-old female with polysubstance abuse admitted for overdosing on multiple substances patient claims that this was for recreational purposes poison control was contacted and recommended monitoring until sobriety anticipated length of stay less than 2 midnights
[2021-11-18] MEDS ORDERED: HEPARIN SODIUM,PORCINE/PF 5,000 UNIT/0.5 ML SYRINGE SQ SCH (08:00)
[2021-11-18] MEDS ORDERED: METOPROLOL TARTRATE 25 MG TAB PO SCH (09:00)
[2021-11-18 10:50] LABS: Basophils # (A) 0.02 X 10*3/uL (0.00-0.10); Basophils % (A) 0.3 %; Eosinophils # (A) 0.13 X 10*3/uL (0.04-0.35); Eosinophils % (A) 2.2 %; HCT 32.1 % (37.2-46.3); HGB 9.5 g/dL (12.0-15.0); Immature Grans, Automated 0.2 %; Lymphocytes # (A) 2.54 X 10*3/uL (0.90-5.00); Lymphocytes % (A) 42.9 %; MCH 23.9 pg (27.0-32.0); MCHC 29.6 g/dL (32.0-37.0); MCV 80.7 fL (80.0-97.0); Mean Platelet Volume 11.5 fL (9.5-12.2); Monocytes # (A) 0.41 X 10*3/uL (0.20-1.00); Monocytes % (A) 6.9 %; NRBC Per 100 WBC 0 /100 WBCS (0.0-0.0); Neutrophils # (A) 2.81 X 10*3/uL (1.80-7.70); Neutrophils % (A) 47.5 %; Platelet Count 235 X 10*3/uL (140-440); RBC 3.98 X 10*6/uL (4.10-5.20); RDW 16.2 % (11.5-14.5); WBC 5.92 X 10*3/uL (4.50-10.00)
[2021-11-18 11:20] LABS: African American GFR (CKD) 114.8 (60.0-200.0); Anion Gap 9.1 mmol/L (10.00-18.00); BUN/Creat Ratio 11.67 Ratio (12.00-20.00); Calcium 8.1 mg/dL (8.7-10.3); Carbon Dioxide 23.9 mmol/L (20.0-27.5); Non-African American GFR(CKD) 99.1 (60.0-200.0); Potassium 4.5 mmol/L (3.5-5.5)
[2021-11-18 12:10] VITALS: BP 180/74; PULSE 56; TEMP 98.1
--- NOTE | 2021-11-18 13:33 | P.CN ---
Psychiatric Consult - . Consult date: 11/18/21 Consult:: 11/18/21 12:43 IDENTIFYING DATA: This patient is a 61-year-old -Armenian female, who is currently residing at [facility], has 4 kids and is currently single. REASON FOR REFERRAL: Psychiatry was consulted for possible overdose HISTORY OF PRESENT ILLNESS: The patient presented to the hospital yesterday from [facility] after a possible overdose on medications however was unclear as to which ones. UDS is positive for opiates, methadone, benzodiazepines and cocaine. Patient claims that she is currently on methadone 80 mg yesterday and asked automobile and property underwriter to restart her back on her dose. She states that she is receiving daily dosing at [facility]. She claims that she is having some withdrawal symptoms at this time and states that her last dose was yesterday. She claims that she is having some sweating irritability and some abdominal pain. She claims that she is also having anxiety at this time from not being on the methadone. She claims that she took 1 Xanax which he bought off her friend and that caused her to overdose accidentally. She states that "it was a mistake" and states that she was doing him any for anxiety. She states that she won't do it again. She claims that she does have mild depression however claims that she is fairly future oriented and wants to go back to [facility] and continue working on her mental health and substance use treatment. She claims that she is having fair sleep at this time. At this time patient denies any suicidal or homical ideations, intent or plan. Patient denies any auditory, visual hallucinations and denies any paranoia or delusions. Patients admits to using she claims that she uses cigarettes daily, hair when daily, and crack every so often about $40 a day. PAST PSYCHIATRIC HISTORY: Patient has a a history of opioid use disorder, anxiety disorder. Patient was previously on BuSpar however has no other psychiatric medications on board. Patient denies any previous psychiatric hospitalizations. Patient denies any psychiatric outpatient follow-up. Patient denies any history of suicide attempts in the past. Past Medical History: Hypertension History of Any Multi-Drug Resistant Organisms: MRSA ALLERGIES: as per EMR. CHEMICAL DEPENDENCY HISTORY: as per HPI. FAMILY PSYCHIATRIC/SUBSTANCE USE HISTORY: denies SOCIAL HISTORY: Patient was born and raised in [facility]. She states that she completed the 10th grade in school. States that she is currently living at [facility] doing rehab. She has 4 kids. She is single and unemployed. MENTAL STATUS EXAM: General Appearance: Patient appears to be thin, stated age is alert, mildly irritable, and attempts to be cooperative. Patient appears to have fair hygiene and grooming wearing hospital gown with poor eye contact. Behavior: Patient is calmly lying in bed without any agitated behavior. Mildly irritable. Speech: Patient's speech is fluent and nonpressured. [place] Mood/Affect: Patient reports their mood is "upset", affect is congruent Suicidality/Homicidality: Patient denies having any suicidal or homicidal ideation intent or plan. Perceptions: Patient denies any visual hallucinations and denies any auditory hallucinations Though content/process: There is no evidence of any delusional thought content and thought process is linear and goal-directed. Focused on discharge and also on getting restarted back on methadone to avoid her withdrawals. Memory and concentration: AOX3, grossly intact for the purposes of this session. Can spell "WORLD" backwards Judgment and insight: poor IMPRESSIONS: Anxiety disorder unspecified Opioid use disorder, currently on agonist therapy Cocaine use disorder Nicotine dependence PLAN: -At this time patient DOES NOT meet criteria for inpatient psychiatric admission. -Would recommend the following medication changes/additions: We'll restart BuSpar 5 mg twice a day for anxiety, can start methadone 10 mg 3 times a day for opioid dependence. Please contact [facility] to verify dosing (when and how much) methadone she is being given/dosing to be restarted. -generator worker to provide patient with outpatient mental health/psychiatry resources for appropriate follow up upon discharge -[employer] Vehicle Racer spoke with patient about substance abuse and the harmful effects on medical and mental health, patient verbally understood and agreed. -Psychiatry will sign off at this time -Please contact with any questions. 11/18/21 13:26
[2021-11-18] MEDS ORDERED: busPIRone HCl 5 MG TAB PO SCH (13:45)
[2021-11-18] MEDS ORDERED: METHADONE 10 MG TAB PO SCH (14:00)
[2021-11-18 14:38] VITALS: BMI 32.3
--- NOTE | 2021-11-18 15:58 | P.DS ---
Providers Date of admission: 11/17/21 21:30 Expected date of discharge: 11/18/21 Attending physician: Jackson Dietz MD Consults: 11/18/21 06:14 Consult Physician Routine Consulting Provider: Jeff Bauer Consult Reason/Comments: overdose, recreational? Do you want consulting provider notified?: Already Contacted Primary care physician: Stated None Hospital Course: Discharge Diagnosis: Polysubstance abuse with reports of abusing cocaine, heroin, methadone, and benzodiazepines. Patient being discharged back to [place] [facility] facility. She was strongly recommended to stop use of cocaine, heroin, methadone, and alcohol and it was also discussed that she needs to stop abusing prescription medications including gabapentin, opiates, methadone, and benzodiazepines. Reported overdose on multiple medications including gabapentin, opiates, methadone, and benzodiazepines Alcohol abuse , recommended total cessation from all alcoholic beverages Nicotine dependence , recommend smoking cessation. Schizophrenia and bipolar disorder. Hypertension, recommend continuing daily medication regimen with Lopressor 25 mg twice daily. Hospital Course: Patient is a 61-year-old female with a past medical history of schizophrenia, bipolar disorder, polysubstance abuse, alcohol abuse and nicotine dependence. She presented to the emergency department on 11/17/21 from [facility]. Patient was reportedly dropped off at [facility] by her friend to go to drug and alcohol rehabilitation however upon arrival to [facility] patient appeared to be under the influence of drugs and admitted to using multiple drugs prior to her arrival to their facility and including cocaine, heroin, and abusing gabapentin, opioids, methadone, and benzodiazepines to get high prior to going to rehab. Patient was then sent to our facility for medical clearance prior to being accepted for admission to [facility]. Patient underwent full evaluation in the emergency department. CBC completed revealing microcytic anemia with hemoglobin of 10.0 and CMP unremarkable. Urinalysis negative for blood or infection. Urine drug screen positive for opiates, methadone, benzodiazepines, and cocaine. Serum alcohol less than 10. EKG was completed revealing normal sinus rhythm at 61 bpm with no noted T-wave or ST abnormalities showing no signs of acute ischemia. Physical examination: Patient seen and examined at bedside. Vital signs reviewed and stable. General: Nontoxic, no distress and appears stated age. Derm: Skin warm and dry, normal coloration for ethnicity. Head: Atraumatic, normocephalic and symmetric. Eyes: EOMs intact, no lid lag, and anicteric sclera Mouth: no lip lesions, mucus membranes moist Cardiovascular: regular rate and rhythm with normal S1S2, no murmur, positive posterior tibial pulses bilaterally, and cap refill < 2 seconds. Lungs: Respirations even, regular, and unlabored on room air. Lungs CTA bilaterally, no rhonchi, no rales, no wheezing, and no accessory muscle usage. Abdominal: soft, nontender to palpation, no guarding, no appreciable organomegaly Ext: ROM intact. No gross muscle atrophy, no edema, no contractures Neuro: Speech clear, face symmetrical and CN II-XII grossly intact with no noted focal neuro deficits Psych: Alert and oriented to person, place, time, and situation. Appropriate and pleasant affect. A total of 35 minutes of time were spent preparing this complex discharge summary. Pt was discharged on 11/18/21 at 2:13 PM Patient Condition at Discharge: Stable Plan - Discharge Summary Discharge Rx Participant: No New Discharge Prescriptions: Continue cloNIDine HCL [Catapres] 0.1 mg PO BID Multivitamins, Thera [Multivitamin (formulary)] 1 tab PO DAILY Atorvastatin Calcium [Lipitor] 10 mg PO HS #30 tab Budesonide-Formot 160-4.5 Mcg [Symbicort 160-4.5 Mcg Inhaler] 1 puff INHALATION RT-BID Albuterol Sulfate [Proair Hfa] 2 puff INHALATION RT-Q6H PRN PRN Reason: Shortness Of Breath metFORMIN HCL 1,000 mg PO BID Lactulose 20 gm PO DAILY amLODIPine [Norvasc] 10 mg PO DAILY Ferrous Sulfate [Iron (65 MG Elemental)] 325 mg PO DAILY Docusate [Colace] 100 mg PO BID Discontinued HYDROcodone/APAP 7.5-325MG [Delong 7.5-325] 1 tab PO Q12H No Action Methadone HCl [Methadone Intensol] 80 mg PO DAILY Discharge Medication List Multivitamins, Thera [Multivitamin (formulary)] 1 tab PO DAILY 07/08/16 [History] cloNIDine HCL [Catapres] 0.1 mg PO BID 07/08/16 [History] Atorvastatin Calcium [Lipitor] 10 mg PO HS #30 tab 07/09/16 [Rx] Albuterol Sulfate [Proair Hfa] 2 puff INHALATION RT-Q6H PRN 11/18/21 [History] Budesonide-Formot 160-4.5 Mcg [Symbicort 160-4.5 Mcg Inhaler] 1 puff INHALATION RT-BID 11/18/21 [History] Docusate [Colace] 100 mg PO BID 11/18/21 [History] Ferrous Sulfate [Iron (65 MG Elemental)] 325 mg PO DAILY 11/18/21 [History] Lactulose 20 gm PO DAILY 11/18/21 [History] Methadone HCl [Methadone Intensol] 80 mg PO DAILY 11/18/21 [History] amLODIPine [Norvasc] 10 mg PO DAILY 11/18/21 [History] metFORMIN HCL 1,000 mg PO BID 11/18/21 [History] Activity/Diet/Wound Care/Special Instructions: Pt to return to [facility] [phone] ext [phone] after nursing to call report Highly recommend cessation of all drug and alcohol abuse including abuse of gabapentin, opioids, methadone, and benzodiazepines. Recommend total cessation of cocaine, heroin, and meth. Recommend smoking cessation. Continued drug and alcohol abuse can only lead to detrimental health problems up to and including . You will need to follow up outpatient with your primary care provider in [place] as we discussed for continued long-term monitoring and management of your blood pressure. Discharge Disposition: HOME SELF-CARE
[2021-11-18] MEDS: SODIUM CHLORIDE 0.9% 1,000 ML IV SCH ×2 (16:56→16:57)
== END 2021-11-18 16:55 | disposition other institution (70) ==
LOC: EC 17:12 → 5NMEDONC 21:30
PROVIDERS: ADMIT Internal Medicine; ATTEND Internal Medicine
DX: T42.4X1A Poisoning by benzodiazepines, accidental (unintentional), initial encounter (principal); T42.6X1A Poisoning by other antiepileptic and sedative-hypnotic drugs, accidental (unintentional), initial encounter; T40.5X1A Poisoning by cocaine, accidental (unintentional), initial encounter; T40.1X1A Poisoning by heroin, accidental (unintentional), initial encounter; F41.9 Anxiety disorder, unspecified; D50.9 Iron deficiency anemia, unspecified; I10 Essential (primary) hypertension; E07.9 Disorder of thyroid, unspecified; F20.9 Schizophrenia, unspecified; F31.9 Bipolar disorder, unspecified; F17.200 Nicotine dependence, unspecified, uncomplicated; F14.10 Cocaine abuse, uncomplicated; F11.10 Opioid abuse, uncomplicated; F10.10 Alcohol abuse, uncomplicated; F17.210 Nicotine dependence, cigarettes, uncomplicated; Z79.899 Other long term (current) drug therapy; Z88.5 Allergy status to narcotic agent; Z88.6 Allergy status to analgesic agent; Z71.51 Drug abuse counseling and surveillance of drug abuser; Z71.41 Alcohol abuse counseling and surveillance of alcoholic; Z86.14 Personal history of Methicillin resistant Staphylococcus aureus infection; Z90.49 Acquired absence of other specified parts of digestive tract; Z98.890 Other specified postprocedural states
CPT/HCPCS: 96360; 96361; 99285; 36415; 94760; 93005; 80053; 80048; 82140; 83605; 83690; 83735; 84484; 85025 ×2; 81003; 80306; 80143; 80179; 71045; G0378 ×2; G0480; S0109; 80320

== ENCOUNTER 2021-11-20 17:24 | Emergency (ER) | payer OTHER ==
[2021-11-20 17:32] VITALS: TEMP 97.8
[2021-11-20] MEDS ORDERED: LORazepam 1 MG TAB PO STA (17:47)
--- NOTE | 2021-11-20 17:49 | ED ---
General Adult HPI - General Chief complaint: Seizure Stated complaint: Seizure Time Seen by Provider: 11/20/21 17:36 Source: patient, EMS, RN notes reviewed Mode of arrival: EMS Limitations: no limitations - History of Present Illness Initial comments: Patient is a pleasant 61-year-old female presenting to the emergency department with reported seizure. Patient has at [facility] secondary to history of polysubstance abuse including methadone and cocaine and benzodiazepines. Patient went there and was admitted to the hospital here night. Patient went back Sunday. Patient does not believe she has had any benzodiazepines since that time. No history of previous seizure. Patient only complains of chronic pain. No new injury. Patient does not feel confused at this time. - Related Data Home Medications Medication Instructions Recorded Confirmed Multivitamins, Thera [Multivitamin 1 tab PO DAILY 07/08/16 11/18/21 (formulary)] cloNIDine HCL [Catapres] 0.1 mg PO BID 07/08/16 11/18/21 Albuterol Sulfate [Proair Hfa] 2 puff INHALATION RT-Q6H PRN 11/18/21 11/18/21 Budesonide-Formot 160-4.5 Mcg 1 puff INHALATION RT-BID 11/18/21 11/18/21 [Symbicort 160-4.5 Mcg Inhaler] Docusate [Colace] 100 mg PO BID 11/18/21 11/18/21 Ferrous Sulfate [Iron (65 MG 325 mg PO DAILY 11/18/21 11/18/21 Elemental)] Lactulose 20 gm PO DAILY 11/18/21 11/18/21 Methadone HCl [Methadone Intensol] 80 mg PO DAILY 11/18/21 11/18/21 amLODIPine [Norvasc] 10 mg PO DAILY 11/18/21 11/18/21 metFORMIN HCL 1,000 mg PO BID 11/18/21 11/18/21 Previous Rx's Medication Instructions Recorded Atorvastatin Calcium [Lipitor] 10 mg PO HS #30 tab 07/09/16 Allergies Allergy/AdvReac Type Severity Reaction Status Date / Time NSAIDS (Non-Steroidal Allergy Unknown Verified 11/18/21 10:37 Anti-Inflamma propoxyphene [From Darvon] Allergy Unknown Verified 11/18/21 10:37 Review of Systems ROS Statement: Those systems with pertinent positive or pertinent negative responses have been documented in the HPI. ROS Other: All systems not noted in ROS Statement are negative. Constitutional: Denies: fever Eyes: Denies: eye pain ENT: Denies: ear pain Respiratory: Denies: cough Cardiovascular: Denies: chest pain Endocrine: Denies: fatigue Gastrointestinal: Denies: abdominal pain Genitourinary: Denies: dysuria Musculoskeletal: Reports: other (Chronic back pain, change) Skin: Denies: rash Neurological: Denies: weakness Past Medical History Past Medical History: Hypertension, Thyroid Disorder History of Any Multi-Drug Resistant Organisms: MRSA Date of last positivie culture/infection: 2013 MDRO Source:: Arm Abscess Past Surgical History: Appendectomy, Cholecystectomy, Tonsillectomy Additional Past Surgical History / Comment(s): 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 Absent: tenderness Respiratory exam: Present: normal lung sounds bilaterally Cardiovascular Exam: Present: regular rate, normal rhythm GI/Abdominal exam: Present: soft. Absent: tenderness Extremities exam: Present: normal inspection, full ROM Neurological exam: Present: alert, oriented X3, CN II-XII intact. Absent: motor sensory deficit Expanded Neurological exam: Present: protecting the airway Patient oriented to: Present: person, place, time Speech: Present: fluid speech Cranial nerves: EOM's Intact: Normal Motor strength exam: RUE: 5, LUE: 5, RLE: 5, LLE: 5 Eye Response: (4) open spontaneously Motor Response: (6) obeys commands Verbal Response: (5) oriented Psychiatric exam: Present: normal affect, normal mood Skin exam: Present: normal color Course Vital Signs 11/20/21 17:26 Temperature 97.8 F Pulse Rate 70 Respiratory 20 Rate Blood Pressure 143/83 O2 Sat by Pulse 100 Oximetry Medical Decision Making - Medical Decision Making Patient reevaluated and updated. Recommended patient returned [facility] and also receive benzodiazepine taper - Lab Data Result diagrams: 11/20/21 18:25 11/20/21 18:25 Lab Results 11/20/21 11/20/21 Range/Units 18:25 18:25 WBC 6.2 (3.8-10.6) k/uL RBC 4.86 (3.80-5.40) m/uL Hgb 12.3 (11.4-16.0) gm/dL Hct 37.4 (34.0-46.0) % MCV 76.9 L (80.0-100.0) fL MCH 25.3 (25.0-35.0) pg MCHC 33.0 (31.0-37.0) g/dL RDW 15.5 (11.5-15.5) % Plt Count 287 (150-450) k/uL MPV 8.8 Neutrophils % 68 % Lymphocytes % 27 % Monocytes % 3 % Eosinophils % 1 % Basophils % 0 % Neutrophils # 4.2 (1.3-7.7) k/uL Lymphocytes # 1.7 (1.0-4.8) k/uL Monocytes # 0.2 (0-1.0) k/uL Eosinophils # 0.1 (0-0.7) k/uL Basophils # 0.0 (0-0.2) k/uL Microcytosis Slight Sodium 135 L (137-145) mmol/L Potassium 4.2 (3.5-5.1) mmol/L Chloride 103 (98-107) mmol/L Carbon Dioxide 24 (22-30) mmol/L Anion Gap 8 mmol/L BUN 15 (7-17) mg/dL Creatinine 0.56 (0.52-1.04) mg/dL Est GFR (CKD-EPI)AfAm >90 (>60 ml/min/1.73 sqM) Est GFR (CKD-EPI)NonAf >90 (>60 ml/min/1.73 sqM) Glucose 103 H (74-99) mg/dL Calcium 9.2 (8.4-10.2) mg/dL Magnesium 2.1 (1.6-2.3) mg/dL Total Bilirubin 0.5 (0.2-1.3) mg/dL AST 26 (14-36) U/L ALT 14 (4-34) U/L Alkaline Phosphatase 151 H (38-126) U/L Total Protein 7.8 (6.3-8.2) g/dL Albumin 3.8 (3.5-5.0) g/dL - Radiology Data Radiology results: report reviewed (CT brain reveals no acute process) Disposition Clinical Impression: New onset seizure Disposition: HOME SELF-CARE Condition: Stable Instructions (If sedation given, give patient instructions): Seizure/Epilepsy Discharge Instructions & Follow-Up, New-Onset Seizure in Adults (ED) Additional Instructions: Return to [facility]. Recommend benzodiazepine taper. Return for recurrent seizures, change in mental status, fever or weakness, worsening symptoms or other concerns. Is patient prescribed a controlled substance at d/c from ED?: No Referrals: Kurtis Monterroso MD [STAFF PHYSICIAN] - 1-2 days Time of Disposition: 19:33
[2021-11-20 18:53] LABS: Basophils % (A) 0 %; Eosinophils # (A) 0.1 k/uL (0-0.7); Eosinophils % (A) 1 %; HCT 37.4 % (34.0-46.0); HGB 12.3 gm/dL (11.4-16.0); Lymphocytes # (A) 1.7 k/uL (1.0-4.8); Lymphocytes % (A) 27 %; MCH 25.3 pg (25.0-35.0); MCV 76.9 fL (80.0-100.0); Mean Platelet Volume 8.8; Microcytosis Slight; Monocytes # (A) 0.2 k/uL (0-1.0); Monocytes % (A) 3 %; Neutrophils # (A) 4.2 k/uL (1.3-7.7); Neutrophils % (A) 68 %; Platelet Count 287 k/uL (150-450); RBC 4.86 m/uL (3.80-5.40); RDW 15.5 % (11.5-15.5); WBC 6.2 k/uL (3.8-10.6)
[2021-11-20 18:55] LABS: ALT 14 U/L (4-34); AST 26 U/L (14-36); African American GFR (CKD) >90 (>60 ml/min/1.73 sqM); Albumin 3.8 g/dL (3.5-5.0); Alkaline Phosphatase 151 U/L (38-126); Anion Gap 8 mmol/L; Blood Urea Nitrogen 15 mg/dL (7-17); Calcium 9.2 mg/dL (8.4-10.2); Carbon Dioxide 24 mmol/L (22-30); Chloride 103 mmol/L (98-107); Glucose 103 mg/dL (74-99); Magnesium 2.1 mg/dL (1.6-2.3); Non-African American GFR(CKD) >90 (>60 ml/min/1.73 sqM); Potassium 4.2 mmol/L (3.5-5.1); Sodium 135 mmol/L (137-145); Total Bilirubin 0.5 mg/dL (0.2-1.3); Total Protein 7.8 g/dL (6.3-8.2)
--- NOTE | 2021-11-20 19:13 | CT ---
EXAMINATION TYPE: CT brain wo con DATE OF EXAM: 11/20/2021 COMPARISON: 3 views HISTORY: Seizure activity CT DLP: 1150.4 mGycm Automated exposure control for dose reduction was used. Ventricles have normal size. There is no mass effect or midline shift. No sign of intracranial hemorr slime. The calvarium is intact. IMPRESSION: Negative unenhanced head CT scan.
[2021-11-20 19:55] VITALS: RESP 16
[2021-11-20 21:02] VITALS: BP 131/64; PULSE 82
== END 2021-11-20 20:45 | disposition home or self-care (01) ==
LOC: EC 17:24
DX: R56.9 Unspecified convulsions (principal); I10 Essential (primary) hypertension; E07.9 Disorder of thyroid, unspecified; F31.9 Bipolar disorder, unspecified; F17.200 Nicotine dependence, unspecified, uncomplicated; Z88.6 Allergy status to analgesic agent; Z88.5 Allergy status to narcotic agent; Z79.899 Other long term (current) drug therapy
CPT/HCPCS: 36415; 70450; 80053; 83735; 85025; 99285